=== PATIENT | male | born 1965 | race Caucasian/White ===

== ENCOUNTER 2019-11-30 08:49 | Outpatient (RCR) | payer BC, SELFPAY ==
--- NOTE | 2019-11-30 09:47 | HMH.PTOPEV ---
PT Outpatient Evaluation Rehab PT Outpatient Evaluation Start: 11/30/19 09:05 Freq: Status: Active Protocol: Document 11/30/19 09:05 NAKIALOTUS (Rec: 11/30/19 09:47 GILLMARIYA [id number]) Electronically Signed By Sergey Lewis PT 11/30/19 09:05 Outpatient Therapy Subjective History Subjective History This is the initial Physical Therapy evaluation for Momo Leal. Pt is a 53 y/o male referred to PT for c /o L UT, cervical pain and LUE paresthesia. Pt reports S&S on/off for years but has increased in last few months. Pt reports most complaints of paresthesia come at night while sleeping. Pt reports he is a stomach sleeper and does sleep w/ carol in flexion and/ or abduction. Chief Complaint Pain,Stiff,Paresthesia Symptom Type Ache,Sharp,Numbness,Tingling Symptoms Relieved By Rest/Positioning,OTC Meds Symptoms Aggravated By Prone Prior Functional Limitations None Current Functional Limitations Sleeping Symptom Description Intermittent Level of pain today (0-10) 0 Pain scale - at its best (0-10) 0 Pain scale - at its worst (0-10) 5 Cervical Eval Palpation Cervical Muscles L Upper Trapezius Cervical/Thoracic Palpation Findings Tenderness,Trigger Point Flexibility Deficits Upper Trapezius Muscle Length (L) Mild Tightness Levaetor Scapulae Muscle Length (L) Mild Tightness AROM Cervical Spine Extension Active Range of 60 Motion (degrees) Cervical Spine Flexion Active Range of 50 Motion (degrees) Cervical Spine Right Lateral Flexion 30 Active Range of Motion (degrees) Cervical Spine Left Lateral Flexion 30 Active Range of Motion (degrees) Cervical Spine Right Rotation Active 80 Range of Motion (degrees) Cervical Spine Left Rotation Active 80 Range of Motion (degrees) MMT Bilateral Deltoid (C5) 5 Normal Biceps Brachii Strength Grade 5 Normal Wrist Extension Strength Grade 5 Normal Triceps Brachii Strength Grade 5 Normal Wrist Flexion Strength Grade 5 Normal Extensor Pollicis Longus Strength Grade 5 Normal Finger Abduction Strength Grade 5 Normal Special Test C-Spine Foraminal Compression (Spurling) Negative Right,Positive Left Test C-Spine Foraminal Distraction Test Positive C-Spine Compression Test Negative Left,Negative Right C-Spine Swallowing Test Negative Right Shoulder A
== END 2019-11-30 08:55 | disposition home or self-care (01) ==
LOC: PT 08:49
PROVIDERS: PCP Internal Medicine Adolescent Medicine; Visit Provider Internal Medicine Adolescent Medicine
DX: S46.812A Strain of other muscles, fascia and tendons at shoulder and upper arm level, left arm, initial encounter (principal)
CPT/HCPCS: 97010; 97012; 97014; 97110; 97163; G0283

== ENCOUNTER 2021-07-28 09:00 | Emergency (ER) | payer BC, SELFPAY ==
[2021-07-28 09:10] VITALS: BP 133/95; PULSE 82; RESP 20; TEMP 37.2; O2SAT 99; BMI 30.2
--- NOTE | 2021-07-28 09:41 | HMH.EDUTC ---
[facility] [place] Clinical Impression: Sinusitis Qualifiers: Sinusitis location: unspecified location Chronicity: unspecified Qualified Code(s): J32.9 - Chronic sinusitis, unspecified Disposition: Home, Self-Care Condition on Discharge: Good Instructions: Sinusitis, Cough, DI for Sinusitis, DI for Cough -- Adult Additional Instructions: *Monitor Temp, Over the counter Motrin or Tylenol as directed/as needed Tylenol every 4 hours and Motrin every 6 hours (as long as your family doctor has told you that you can take it) for fever or pain. and straight to ER if unable to lower temp less than 101.0 after medication given *Warm salt water gargles may help to soothe the throat *Throat Lozenges *Warm fluids like tea with honey may help to soothe the throat *Sleep elevated *Humidifier/Vaporizer *Flonase 2 sprays in each nostril daily but be aware that it may take 2-3 days before you notice improvement Take medication as prescribed Follow up IMMEDIATELY for new or worsening symptoms or no Noticeable improvement over the next 48-72 hours. 911 for difficulty breathing or swallowing Prescriptions: predniSONE [Prednisone 20mg Tab] 20 mg PO BID 5 Days #10 tab Transmission Status: Received by [id number] Promethazine/Dextromethorphan [Promethazine-Dm Syrup] 5 ml PO Q6H PRN #120 ml PRN Reason: Cough Transmission Status: Received by [id number] Azithromycin [Z-Vladislav 250mg Tab] 250 mg PO DIRECTED #6 tab Transmission Status: Received by [id number] Referrals: Forest Evans [Primary Care Provider] - As needed Time of Disposition: 09:53 Medical Decision Making - Nabor Inquiry Pt receiving controlled substance: No Nabor was queried for this patient: No Vital Signs: 07/28/21 09:10 07/28/21 10:05 Temperature 99.0 F 99.0 F Temperature Source Oral Pulse Rate 82 Pulse Rate [Left Brachial] 82 Respiratory Rate 20 20 Blood Pressure 133/95 H Blood Pressure [Left Arm] 133/95 H Blood Pressure Mean [Left Arm] 107 Blood Pressure Source [Left Arm] Automatic Cuff Blood Pressure Position [Left Arm] Sitting 02 Sat by Pulse Oximetry 99 Oxygen Delivery Method Room Air Orders (Tests/Meds): ED MEDICATIONS Discontinued Medications Generic Name Dose Route Start Last Admin Trade Name Danielle PRN Reason Stop Dose Admin Ceftriaxone Sodium 1 gm 07/28/21 09:49 07/28/21 10:00 Ceftriaxone 1gm Vial IM 07/28/21 09:50 1 gm ONCE ONE Administration Lidocaine HCl 0 ml 07/28/21 09:49 07/28/21 10:00 Lidocaine 1% 5ml Pf Vial IM 07/28/21 09:50 2 ml ONCE ONE Administration Methylprednisolone Sodium Succinate 125 mg 07/28/21 09:49 07/28/21 10:00 Methylprednisolone Sod Succ 125mg Vial IM 07/28/21 09:50 125 mg ONCE ONE Administration [facility] [place] - General Stated complaint: cough, THORNE, congestion, sweats Time Seen by Provider: 07/28/21 09:41 Mode of Arrival: Ambulatory Source of Information: Patient Limitations: No Limitations Description of Symptoms (Recalled from Triage Doc. by RN): PATIENT C/O COUGH WITH PHLEGM AND SINUS PRESSURE SINCE 07/21 HEENT Symptoms (Recalled from RN notes): Yes Resp Symptoms (Recalled from RN notes): Yes Skin Symptoms (Recalled from RN notes): No MS Symptoms (Recalled from RN notes): No Functional Status (Recalled from RN notes): WNL - History of Present Illness Provider Complaint: Patient state that he has been having sinus pain and pressure, cough, and at times he is able to cough up some mucous States that he had a COVID test and it was negative so he thinks it may be in his sinuses so he came in to get checked - Related Data Previous Rx's Medication Instructions Recorded Azithromycin [Z-Vladislav 250mg Tab] 250 mg PO DIRECTED #6 tab 07/28/21 Promethazine/Dextromethorphan 5 ml PO Q6H PRN #120 ml 07/28/21 [Promethazine-Dm Syrup] predniSONE [Prednisone 20mg 20 mg PO BID 5 Days #10 tab 07/28/21 Tab] Allergies
[2021-07-28 10:05] VITALS: BP 133/95; PULSE 82; RESP 20; TEMP 37.2; O2SAT 99
== END 2021-07-28 10:16 | disposition home or self-care (01) ==
PROVIDERS: Emergency Provider Nurse Practitioner; PCP Family Medicine
DX: J32.9 Chronic sinusitis, unspecified (principal)
CPT/HCPCS: 96372; 99202; G0463; J0696